=== PATIENT | male | born 1980 | race Two or more races ===

== ENCOUNTER 2020-03-11 09:40 | Emergency (ER) | payer MEDICAID ==
[~2020-03-11] VITALS: Ht 190.5 cm; Wt 101.1 kg
--- NOTE | 2020-03-11 10:35 | NUR ---
PT C/O WEAKNESS, BODY ACHES (ALL OVER) AND SHORTNESS OF BREATH. IN ADDITION PT EXPRESSED CONCERN ABOUT DISCOLORATION OF SKIN ON LOWER EXT. PT RECENTLY HAD CONTACT WITH HIS MOTHER WHO HAS SINCE TESETED POSITIVE FOR COVID AND IS CONCERNED HE MAY HAVE COVID. ASSESSMENT, 3p'S, AND CLINICAL SCREEN COMPLETED. X-RAY ALSO COMPLETED CHEST XRAY WHILE RN WAS PRESENT.
[2020-03-11 11:29] VITALS: BP 124/76
== END 2020-03-11 11:51 | disposition home or self-care (01) ==
LOC: ED 11:26
DX: B34.9 Viral infection, unspecified (principal); R05 Cough; R06.02 Shortness of breath; Z20.828 Contact with and (suspected) exposure to other viral communicable diseases
CPT/HCPCS: 36415; 71045; 87635; 99284